=== PATIENT | female | born 1935 | race Two or more races ===

== ENCOUNTER 2018-07-20 08:23 | Day surgery (SDC) | payer MEDICARE, MEDICAID ==
[2018-07-20] VITALS (9 sets, daily range): BP systolic 120–149; BP diastolic 64–74
[~2018-07-20] VITALS: Ht 154.9 cm; Wt 72.6 kg
--- NOTE | 2018-07-20 06:27 | Anethesia Preoperative Eval ---
Anesthesia Pre-op PMH/ROS General Date of Evaluation: Jul 20, 2018 Time of Evaluation: 06:24 Anesthesiologist: zhane ASA Score: ASA 3 Mallampati Score Class I : Soft palate, uvula, fauces, pillars visible Class II: Soft palate, uvula, fauces visible Class III: Soft palate, base of uvula visible Class IV: Only hard plate visible Mallampati Classification: Class II Surgeon: ela Diagnosis: abdominal pain, gerd Surgical Procedure: egd/colonoscopy Anesthesia History: none Social History: smoking - nonsmoker Family History: no anesthesia problems Allergies: Coded Allergies: No Known Allergies (Unverified , 07/20/18) Medications: see eMAR Patient NPO?: Yes Past Medical History Cardiovascular: Reports: HTN, other - hypercholesterolemia Gastrointestinal/Genitourinary: Reports: GERD, other - dysphagia, constipation , abdominal pain Endocrine: Reports: DM HEENT: Reports: other - decreased visual acuity Musculoskeletal/Integumentary: Reports: OA PSxH Narrative: left knee arthroplasty Anesthesia Pre-op Phys. Exam Physician Exam Constitutional: NAD Neurologic: CN 2-12 intact Cardiovascular: RRR Respiratory: CTA Gastrointestinal: S/NT/ND Airway Exam Mallampati Score: Class II MO: limited Neck: flexible TMD: 2fb ROM: limited Anesthesia Pre-op A/P Risk Assessment & Plan Assessment: asa3 Plan: mac Status Change Before Surgery: No Pre-Antibiotics Drug: Felicia Glover MD Jul 20, 2018 06:27
--- NOTE | 2018-07-20 08:55 | Short Stay Surgery H&P ---
History of Present Illness History of Present Illness Chief Complaint Abdominal pains/chronic diarrhea/GERSDs HPI Foralaina Teague is a 83 year old female who was admitted on for Gerd, Abdominal Pain/diarrhea Patient History PAST MEDICAL HISTORY: (1) Diabetes (2) Hypertension (3) Hyperlipidemia (4) Status post spinal disc removal (5) S/P shoulder surgery (6) S/P knee surgery Review of Systems Cardiovascular: Reports: no symptoms Respiratory: Reports: no symptoms Skeletal: Reports: no symptoms Gastrointestinal: Reports: gastro esophageal reflux disease Genitourinary: Reports: no symptoms Neurologic: Reports: no symptoms Endocrine: Reports: diabetes - type 2 Hematologic: Reports: no symptoms Physical Exam Skin: normal HENT: normal Heart: normal Lungs: normal Abdomen: abnormal Extremities: normal Genitourinary: normal Plan Plan of Care Upper Gi /lower Gi endoscopy with obtaining biopsies Preop Interventions None. Summary of Findings See the reports Attestation Are the patient's medical conditions optimized for surgery? Attestation Response: yes Monie Hermosillo MD Jul 20, 2018 08:55
--- NOTE | 2018-07-20 08:56 | Pre-Procedure Note/Attestation ---
Pre-Procedure Note/Attestation Complete Prior to Procedure Planned Procedure: left Procedure Narrative: Examination of Upper and the lower GI tract via endoscopy Indications for Procedure Pre-Operative Diagnosis: R/O Gastritis/celiac/ Crohn's disease/colitis Attestation I attest that I discussed the nature of the procedure; its benefits; risks and complications; and alternatives (and the risks and benefits of such alternatives ), prior to the procedure, with the patient (or the patient's legal phone representative). I attest that, if there was a reasonable possibility of needing a blood transfusion, the patient (or the patient's legal phone representative) was given the [facility] standardized written summary, pursuant to the [place] Blood Safety Act ([place] Health and Safety Code # 1645, as amended). I attest that I re-evaluated the patient just prior to the surgery and that there has been no change in the patient's H&P, except as documented below: Monie Hermosillo MD Jul 20, 2018 08:56
--- NOTE | 2018-07-20 08:57 | Pre-Procedure Note/Attestation ---
Pre-Procedure Note/Attestation Complete Prior to Procedure Planned Procedure: left Procedure Narrative: The examination of the upper and the lower GI tract with obtaining biopsies Indications for Procedure Pre-Operative Diagnosis: R/O Gastritis/celiac/ Crohn's disease/colitis Attestation I attest that I discussed the nature of the procedure; its benefits; risks and complications; and alternatives (and the risks and benefits of such alternatives ), prior to the procedure, with the patient (or the patient's legal policy services representative). I attest that, if there was a reasonable possibility of needing a blood transfusion, the patient (or the patient's legal policy services representative) was given the [place] [facility] standardized written summary, pursuant to the [place] Blood Safety Act ([place] Health and Safety Code # 1645, as amended). I attest that I re-evaluated the patient just prior to the surgery and that there has been no change in the patient's H&P, except as documented below: Monie Hermosillo MD Jul 20, 2018 08:57
[2018-07-20] MEDS ORDERED: LR 1000ml ONE (10:00)
[2018-07-20] MEDS ORDERED: Lidocaine 1% MPF 10mg/ml 5ml ONE (10:00)
[2018-07-20] MEDS ORDERED: Propofol 200mg/20ml IV ONE (10:00)
[2018-07-20] MEDS ORDERED: LR 1000ml 1,000 ML IVLG SCH (10:04)
[2018-07-20] MEDS ORDERED: DiphenhydrAMINE 50mg/ml Inj IVP PRN (10:15)
[2018-07-20] MEDS ORDERED: fentaNYL 100 mcg/2 mL IV PRN (10:15)
[2018-07-20] MEDS ORDERED: Atropine Inj 1mg/10ml Syr IV PRN (10:15)
[2018-07-20] MEDS ORDERED: Midazolam 2mg/2ml Inj IVP PRN (10:15)
--- NOTE | 2018-07-20 11:09 | Endoscopy Procedure Note ---
Endoscopy Procedure Note General Indication for Procedure: GERDs/diarrhea Procedures Performed: EGD - Small hiatal hernia noted, otherwise normal upper GI endoscopy. Biopsies obtained from mid esophagus, gastric body and first second portion of duodenum., colonoscopy - Minimal internal hemorrhoids noted, Terminal ilium couldn't be penetrated. Biopsies obtained oer random from different parts of colon. Specimen: yes Pt Tolerated Procedure Well: Yes Estimated Blood Loss: none Anesthesia Anesthesiologist: Dr. Barron Anesthesia: moderate sedation Medications Medication Given: see anesthesia record Inserted Devices Implant(s) used?: No Quality Quality of Bowel Preparation: Excellent Did scope reach the cecum?: Yes Was there any complications?: No GI Core Measures 50 yrs or older w/o bx or poly: Yes 10yrs. F/U not recommended: No If not recommended, why?: 10 yrs. F/U needed: No 18 years or older w/prev. colo: No <3yrs. since last colonoscopy: No Med reason:<3 yrs.: System Reason:<3 yrs.: Last colonoscopy >= to 3yrs: Yes Monie Hermosillo MD Jul 20, 2018 11:09
--- NOTE | 2018-07-20 11:13 | Endoscopy Procedure Note ---
Endoscopy Procedure Note General Indication for Procedure: Abdominal pains/GERDS diarrhea Procedures Performed: EGD - small hiatal hernia found only. Biopsied done from mid esophagus, gastric body first and second portion of duodenum., colonoscopy - Minimal internal hemorrhoids, terminal ilium couldn't be pernetrated. biopsied obtained from diffrerent parts of colon. Specimen: yes Pt Tolerated Procedure Well: Yes Estimated Blood Loss: none Anesthesia Anesthesiologist: Dr. Barron Anesthesia: moderate sedation Medications Medication Given: see anesthesia record Inserted Devices Implant(s) used?: No Quality Quality of Bowel Preparation: Excellent Did scope reach the cecum?: Yes Was there any complications?: No GI Core Measures 50 yrs or older w/o bx or poly: Yes 10yrs. F/U not recommended: No If not recommended, why?: Med reason:<3 yrs.: System Reason:<3 yrs.: Last colonoscopy >= to 3yrs: Yes Monie Hermosillo MD Jul 20, 2018 11:13
--- NOTE | 2018-07-20 11:14 | Discharge Instructions ---
Discharge Instructions Discharge Instructions Follow up with: Visit the doctor after two weeks in the office For Congestive Heart Failure Reminder Report to your physician any weight gain of 5 pounds or more in one week. Monie Hermosillo MD Jul 20, 2018 11:14
--- NOTE | 2018-07-20 11:38 | Immediate Post-Op Evaluation ---
Immediate Post-Op Evalulation Immediate Post-Op Evalulation Procedure: egd/colonoscopy/bx Date of Evaluation: Jul 20, 2018 Time of Evaluation: 11:35 IV Fluids: 550ml lr Blood Products: none Estimated Blood Loss: negligible Blood Pressure Systolic: 128 Blood Pressure Diastolic: 64 Pulse Rate: 64 Respiratory Rate: 18 O2 Sat by Pulse Oximetry: 100 Temperature (Fahrenheit): 97.0 Pain Score (1-10): 0 Nausea: No Vomiting: No Complications none Patient Status: awake, reacts, patent Hydration Status: adequate Drug: Felicia Glover MD Jul 20, 2018 11:38
--- NOTE | 2018-07-20 11:39 | 48 Hour Post Anesthesia Eval ---
Post Anesthesia Evaluation Procedure: egd/colonoscopy/bx Date of Evaluation: Jul 20, 2018 Time of Evaluation: 11:38 Blood Pressure Systolic: 139 0: 66 Pulse Rate: 62 Respiratory Rate: 18 Temperature (Fahrenheit): 07.0 O2 Sat by Pulse Oximetry: 100 Airway: patent Nausea: No Vomiting: No Pain Intensity: 0 Hydration Status: adequate Cardiopulmonary Status: stable Mental Status/LOC: patient returned to baseline Post-Anesthesia Complications: none Follow-up care needed: N/A Felicia Barron MD Jul 20, 2018 11:39
--- NOTE | 2018-07-20 18:00 | Procedure Note ---
DATE OF PROCEDURE: 07/20/2018 SURGEON: Monie Hermosillo M.D. PROCEDURE: Esophagogastroduodenoscopy with biopsy. PREOPERATIVE DIAGNOSES: Abdominal pain, diarrhea, dysphagia, heartburn. POSTOPERATIVE DIAGNOSIS: Small hiatal hernia, otherwise completely normal upper GI endoscopy. Biopsy was taken from mid esophagus, the body of the stomach, first and second portion of duodenum. Evidence of significant amount of bile in the stomach. MEDICATION USED: Per Dr. Jerome, anesthesiologist. INSTRUMENT: GIF Olympus upper GI video endoscope. DESCRIPTION OF PROCEDURE: The patient after arriving endoscopy unit, was told about risks and benefits of the procedure which she accepted and signed informed consent. She was then put on the left lateral decubitus position. After adequate IV sedation, the scope was gently passed through the cricopharyngeal area, was lodged into the upper esophagus and gradually advanced towards gastroesophageal junction. The entire length of the esophagus looked normal. No evidence of any inflammatory process, ulceration, stricture, etc. was found. One random biopsy from mid esophagus was obtained. Subsequently, the scope was passed through the lower esophagus, which revealed evidence of evidence of small hiatal hernia. There were no Aburto's. The scope at this time was guided into the stomach, gastric cavity was distended and gradually the areas of the fundus and the body and the antrum were examined, which basically revealed completely normal gastric mucosal coverage. There was no ulcers, tumors, polyps, inflammatory process etc. A retroflexion maneuver was also applied and the area of the gastroesophageal junction was examined in a closer fashion, which revealed normal findings. At this time, one biopsy per random from gastric body obtained and subsequently the scope was passed through the antrum. First and second portion of duodenum were examined. Again, these areas were completely normal and no evidence of pathology was found. A random biopsy from duodenal bulb, and second portion of duodenum were also obtained. Subsequently, the scope was pulled out and procedure was terminated. The patient tolerated the procedure well. Monie Hermosillo M.D. DR: Viviana JOB#: [id number] CC:
--- NOTE | 2018-07-20 18:15 | Operative Note - Dictated ---
DATE OF OPERATION: 07/20/2018 SURGEON: Monie Hermosillo M.D. PROCEDURE: Total colonoscopy with multiple biopsies. PREOPERATIVE DIAGNOSES: Abdominal pain and chronic diarrhea. POSTOPERATIVE DIAGNOSES: 1. Minimal internal hemorrhoids, otherwise complete normal total colonoscopy as examined up to the base of the cecum. Terminal ileum could not be penetrated. 2. Multiple biopsies were taken from different parts of the colon. MEDICATION USED: Per Dr. Jerome. INSTRUMENT: GIF Olympus video colonoscope. DESCRIPTION OF PROCEDURE: The patient after arriving in endoscopy unit, was told about risks and benefits of the procedure which he accepted and signed informed consent. He was then put on the left lateral decubitus position. After adequate IV sedation, the scope was gently passed through the anal area which revealed evidence of minimal internal hemorrhoids, which were not friable. There were no any major pathological finding in the rectum as the scope was also retroflexed. At this point, the scope was gradually advanced into the rectosigmoid angle and introduced into the left colon and gradually reached towards the splenic flexure, transverse colon, hepatic flexure, and guided into the right colon all the way to the base of the cecum as appendiceal opening was visualized. All these areas remained completely normal and there was no any evidence of tumors, polyps, inflammatory process, ulceration, etc. No strictures. At this time, multiple attempt was made to enter into the terminal ileum, which was not successful. Finally, the scope was gradually pulled out after obtaining multiple biopsies from different parts of the colon including ascending, transverse, descending, rectosigmoid angle, and rectal area. The patient tolerated the procedure well and left the endoscopy room in a good condition. Monie Hermosillo M.D. DR: Tiffanie JOB#: [id number] CC:
== END 2018-07-20 13:30 | disposition home or self-care (01) ==
LOC: GAS 08:23
DX: R10.9 Unspecified abdominal pain (principal); K29.50 Unspecified chronic gastritis without bleeding; K64.8 Other hemorrhoids; R19.7 Diarrhea, unspecified; K44.9 Diaphragmatic hernia without obstruction or gangrene; E11.9 Type 2 diabetes mellitus without complications; I10 Essential (primary) hypertension; E78.5 Hyperlipidemia, unspecified; K21.9 Gastro-esophageal reflux disease without esophagitis; E78.00 Pure hypercholesterolemia, unspecified; M19.90 Unspecified osteoarthritis, unspecified site; Z96.652 Presence of left artificial knee joint
CPT/HCPCS: 43239; 45380; 82962; J2704; 94003; 94150